=== PATIENT | male | born 1945 | race Caucasian/White ===

== ENCOUNTER 2019-06-09 12:00 | Observation (INO) | payer MEDICARE, OTHER ==
[~2019-06-09] VITALS: Ht 180.3 cm; Wt 129.6 kg
[~2019-06-09 12:00] MED LIST: AMLO5TAB PO; ASPI-1265 PO; ATOR10TA70 PO; FLO0.4C PO; GABA-532 PO; LOSA1TAB36 PO; METO25TA6 PO; MULT-1085 PO; NITR0.4T48 SL; TRAZ150T78 PO
[2019-06-09 12:33] LABS: BASOPHILS # (AUTO) 0.1 X10'3 (0-0.2); BASOPHILS % (AUTO) 0.8 % (0-1); EOSINOPHILS # (AUTO) 0.2 X10'3 (0-0.9); EOSINOPHILS % (AUTO) 3.2 % (0-6); HEMATOCRIT 46.6 % (42.0-52.0); HEMOGLOBIN 15.8 g/dl (14.0-17.9); LYMPHOCYTES # (AUTO) 2.1 X10'3 (1.1-4.8); LYMPHOCYTES % (AUTO) 29.3 % (21-51); MEAN CORPUSCULAR HEMOGLOBIN 30.9 PG (27.0-31.0); MEAN CORPUSCULAR HGB CONC 33.9 g/dL (33.0-36.5); MEAN PLATELET VOLUME 8.8 FL (7.4-10.4); MONOCYTES # (AUTO) 0.7 X10'3 (0-0.9); MONOCYTES % (AUTO) 9.8 % (2-12); NEUTROPHILS % (AUTO) 56.9 % (42-75); PLATELET COUNT 203 X10'3 (140-440); RED BLOOD COUNT 5.12 X10'6 (4.70-6.10); RED CELL DISTRIBUTION WIDTH 13.4 % (11.5-14.5); WHITE BLOOD COUNT 7.1 X10'3 (4.5-11.0)
[2019-06-09 12:46] LABS: PARTIAL THROMBOPLASTIN TIME 28 SECONDS (22-32)
[2019-06-09 12:50] LABS: ALANINE AMINOTRANSFERASE 33 U/L (12-78); ALKALINE PHOSPHATASE 104 IU/L (46-116); ANION GAP 6 (8-16); ASPARTATE AMINO TRANSFERASE 22 U/L (10-37); BILIRUBIN,TOTAL 0.4 MG/DL (0.1-1.0); BLOOD UREA NITROGEN 11 MG/DL (7-18); BUN/CREATININE RATIO 10.1 (5.4-32.0); CALCIUM 8.8 MG/DL (8.5-10.1); CHLORIDE 104 MMOL/L (99-107); CREATININE 1.09 MG/DL (0.60-1.10); GLUCOSE 125 MG/DL (70-104); POTASSIUM 3.8 MMOL/L (3.5-5.1); SODIUM 143 MMOL/L (135-145); TOTAL CARBON DIOXIDE 33.4 MMOL/L (24-32); TROPONIN I < 0.04 NG/ML (0.0-0.05); eGFR 66 ML/MIN
[2019-06-09] MEDS ORDERED: iohexol 350MG/ML 100ml bottle IV ONE (13:05)
[2019-06-09 13:38] LABS: C-REACTIVE PROTEIN 0.06 MG/DL (0.0-0.5)
--- NOTE | 2019-06-09 13:38 | NUR ---
VASCULAR AT BEDSIDE
--- NOTE | 2019-06-09 14:24 | NUR ---
MOUNTING INSPECTOR DONE WITH THE PT .PT RESTING IN BED ,NO DISTRESS NOTED .ASSIGNED NURSE ON BREAK RGT NOW.PT USING URINAL NOW.
[2019-06-09] MEDS ORDERED: aspirin 325mg tablet PO ONE (14:25)
--- NOTE | 2019-06-09 14:30 | NUR ---
pt urinated 510 ml of urine.vitals stable ,pt med as per provider order administered.
[2019-06-09] MEDS ORDERED: magnesium hydroxide 30ml (MOM) UD suspension PO PRN (15:35)
[2019-06-09] MEDS ORDERED: ondansetron/PF 4mg/2ml inj IV PRN (15:35)
[2019-06-09] MEDS ORDERED: HYDROcodone/acetaminophen 5mg/325mg tablet PO PRN (15:35)
[2019-06-09] MEDS ORDERED: acetaminophen 325mg tablet PO PRN (15:35)
[2019-06-09] MEDS ORDERED: mag hydrox/Alum hydrox/simeth 30ml oral suspension PO PRN (15:35)
[2019-06-09] MEDS ORDERED: morphine 2 MG/ML inj. syringe IV PRN ×2 (15:35)
[2019-06-09] MEDS ORDERED: DULO60CA65 PO (16:32)
[2019-06-09] MEDS ORDERED: TRAZ-219 PO (16:32)
[2019-06-09] MEDS ORDERED: GABA-532 PO (16:32)
[2019-06-09] MEDS ORDERED: CYCL10TA10 PO (16:32)
[2019-06-09 16:33] LABS: CHOL/HDL RATIO 3.3 (0.00-4.99); CHOLESTEROL 113 MG/DL (0-200); HDL CHOLESTEROL 34 MG/DL (35-60); LDL CHOLESTEROL 62 MG/DL (50-100); TRIGLYCERIDES 185 MG/DL (20-135)
[2019-06-09 16:35] LABS: HEMOGLOBIN A1C 5.6 % (4.5-6.2)
--- NOTE | 2019-06-09 16:49 | NUR ---
NEURO TELE CONSULT IN PROGRESS
--- NOTE | 2019-06-09 17:32 | NUR ---
ECHO AT BEDSIDE
[2019-06-09 19:21] VITALS: BP 138/82
[2019-06-09] MEDS: cyclobenzaprine 10mg tablet PO SCH (20:43)
[2019-06-09] MEDS: gabapentin 300mg capsule PO SCH (20:43)
--- NOTE | 2019-06-09 20:55 | NUR ---
PT ARRIVED ON FLOOR AT 1920 VIA GURNEY AND ONE ATTENDANT. PT SETTLED IN AND VSS. STROKE ASSESSMENT PERFORMED WITH ZERO DEFICITS. PT IS A&OX4, CALL LIGHT WITHIN REACH, SWALLOW GOOD, SKIN GOOD.
[2019-06-09] MEDS ORDERED: traZODone 150mg tablet PO SCH (21:00)
[2019-06-09 22:00] VITALS: BP 130/79
[2019-06-10 02:00] VITALS: BP 133/88
--- NOTE | 2019-06-10 02:00 | NUR ---
TELE REPORTED THAT PT'S BP WAS ELEVATED INTO THE 130'S. ASSESSMENT, PT WAS UP TO THE BR WITH ASSIST, AND BACK TO BED, NO SOB, NO CP, NO OTHER SYMPTOMS, PT STATES THAT HE DIDN'T NOTICE ANYTHING. CALLED BACK TO TELEMETRY, AND PT HR IS BACK INTO THE 80'S. WILL CONTINUE TO MONITOR.
[2019-06-10 06:00] VITALS: BP 124/76
[2019-06-10 06:01] LABS: BASOPHILS # (AUTO) 0.1 X10'3 (0-0.2); BASOPHILS % (AUTO) 1.2 % (0-1); EOSINOPHILS # (AUTO) 0.3 X10'3 (0-0.9); EOSINOPHILS % (AUTO) 3.2 % (0-6); HEMATOCRIT 45.7 % (42.0-52.0); HEMOGLOBIN 15.6 g/dl (14.0-17.9); LYMPHOCYTES # (AUTO) 2.6 X10'3 (1.1-4.8); MEAN CORPUSCULAR HEMOGLOBIN 30.6 PG (27.0-31.0); MEAN CORPUSCULAR HGB CONC 34.2 g/dL (33.0-36.5); MEAN CORPUSCULAR VOLUME 89.5 FL (78-98); MONOCYTES # (AUTO) 0.8 X10'3 (0-0.9); MONOCYTES % (AUTO) 9.4 % (2-12); NEUTROPHILS # (AUTO) 5.2 X10'3 (1.8-7.7); NEUTROPHILS % (AUTO) 57.2 % (42-75); PLATELET COUNT 202 X10'3 (140-440); RED BLOOD COUNT 5.11 X10'6 (4.70-6.10); RED CELL DISTRIBUTION WIDTH 13.8 % (11.5-14.5)
--- NOTE | 2019-06-10 06:30 | NUR ---
received report from rita champagne
[2019-06-10 06:38] LABS: ALBUMIN 3.6 G/DL (3.4-5.0); ANION GAP 11 (8-16); BLOOD UREA NITROGEN 10 MG/DL (7-18); BUN/CREATININE RATIO 9.4 (5.4-32.0); CALCIUM 8.6 MG/DL (8.5-10.1); CHLORIDE 105 MMOL/L (99-107); CHOL/HDL RATIO 3.5 (0.00-4.99); CHOLESTEROL 106 MG/DL (0-200); CREATININE 1.06 MG/DL (0.60-1.10); GLUCOSE 103 MG/DL (70-104); HDL CHOLESTEROL 30 MG/DL (35-60); LDL CHOLESTEROL 61 MG/DL (50-100); POTASSIUM 3.6 MMOL/L (3.5-5.1); SODIUM 144 MMOL/L (135-145); TOTAL CARBON DIOXIDE 27.8 MMOL/L (24-32); TRIGLYCERIDES 126 MG/DL (20-135); eGFR 69 ML/MIN
--- NOTE | 2019-06-10 06:43 | NUR ---
REPORT GIVEN TO KELLY SOLARES.
[2019-06-10] MEDS: cyclobenzaprine 10mg tablet PO SCH (07:38)
[2019-06-10] MEDS: gabapentin 300mg capsule PO SCH (07:38)
[2019-06-10] MEDS ORDERED: aspirin 81mg tab.chew PO SCH (08:00)
[2019-06-10] MEDS ORDERED: aspirin 81mg tablet.DR PO SCH (08:00)
[2019-06-10] MEDS ORDERED: atorvastatin 10mg tablet PO SCH (08:00)
[2019-06-10] MEDS ORDERED: duloxetine 30mg CAPSULE.DR PO SCH (08:00)
[2019-06-10] MEDS ORDERED: tamsulosin 0.4mg capsule PO SCH (08:00)
[2019-06-10] MEDS ORDERED: clopidogrel 75mg tablet PO SCH (08:00)
[2019-06-10] MEDS ORDERED: CLOP75TA35 PO (08:12)
[2019-06-10 09:50] VITALS: BP 127/77
--- NOTE | 2019-06-10 09:58 | NUR ---
pt d/c with instructions, understanding of instructions, and w/all belongings in wheelchair to private vehicle to go home and f/u w/pcp
== END 2019-06-10 10:00 | disposition home or self-care (01) ==
LOC: ER 12:00 → ED HOLD 16:56 → CMPBEDREQ 18:05 → ORTHO 4S 18:34 → CMPBEDREQ 19:33
PROVIDERS: ADMIT Internal Medicine; ATTEND Internal Medicine
DX: G45.3 Amaurosis fugax (principal); I25.10 Atherosclerotic heart disease of native coronary artery without angina pectoris; I25.2 Old myocardial infarction; I10 Essential (primary) hypertension; E78.5 Hyperlipidemia, unspecified; G62.9 Polyneuropathy, unspecified; E78.00 Pure hypercholesterolemia, unspecified; N40.0 Benign prostatic hyperplasia without lower urinary tract symptoms; G47.00 Insomnia, unspecified; Z86.73 Personal history of transient ischemic attack (TIA), and cerebral infarction without residual deficits; Z87.891 Personal history of nicotine dependence; Z96.653 Presence of artificial knee joint, bilateral; Z96.649 Presence of unspecified artificial hip joint; Z90.49 Acquired absence of other specified parts of digestive tract; Z79.02 Long term (current) use of antithrombotics/antiplatelets; Z79.82 Long term (current) use of aspirin; Z79.899 Other long term (current) drug therapy
CPT/HCPCS: 36415; 70450; 70496; 70498; 71045; 80048; 80053; 80061; 83036; 83880; 84484; 85025; 85610; 85651; 85730; 86140; 87081; 92508; 92616; 93005; 93306; 93880; 97116; 97161; 97530; 99284; G0378; Q9967

== ENCOUNTER 2020-09-07 09:40 | Day surgery (SDC) | payer OTHER, MEDICARE ==
[2020-09-01 12:17] LABS: BASOPHILS # (AUTO) 0.1 X10'3 (0-0.2); EOSINOPHILS % (AUTO) 0.7 % (0-6); LYMPHOCYTES # (AUTO) 1.7 X10'3 (1.1-4.8); LYMPHOCYTES % (AUTO) 26.6 % (21-51); MEAN CORPUSCULAR HEMOGLOBIN 30.2 PG (27.0-31.0); MEAN CORPUSCULAR HGB CONC 33.8 g/dL (33.0-36.5); MEAN CORPUSCULAR VOLUME 89.6 FL (78-98); MEAN PLATELET VOLUME 8.4 FL (7.4-10.4); MONOCYTES # (AUTO) 0.5 X10'3 (0-0.9); MONOCYTES % (AUTO) 8.3 % (2-12); NEUTROPHILS % (AUTO) 63.4 % (42-75); PRE OP HEMATOCRIT 46.4 % (42.0-52.0); PRE OP HEMOGLOBIN 15.7 g/dL (14.0-17.9); PRE OP PLATELET COUNT 219 X10'3 (140-440); RED BLOOD COUNT 5.18 X10'6 (4.70-6.10); RED CELL DISTRIBUTION WIDTH 14.2 % (11.5-14.5)
[2020-09-01 12:23] LABS: PRE OP INR 1.1 INR; PRE OP PROTIME 11.4 SECONDS (9.0-12.0)
[2020-09-01 12:24] LABS: ALBUMIN 4.1 G/DL (3.4-5.0); ALBUMIN/GLOBULIN RATIO 1.2 (1.1-1.5); ALKALINE PHOSPHATASE 75 IU/L (46-116); BLOOD UREA NITROGEN 11 MG/DL (7-18); BUN/CREATININE RATIO 10.8 (5.4-32.0); CALCIUM 8.7 MG/DL (8.5-10.1); CHLORIDE 105 MMOL/L (99-107); CREATININE 1.02 MG/DL (0.60-1.10); PRE OP ALT 39 U/L (30-65); PRE OP ANION GAP 5 (8-16); PRE OP AST 27 U/L (10-37); PRE OP BILIRUB, TOTAL 0.4 MG/DL (0.0-1.0); PRE OP GLUCOSE 106 MG/DL (70-104); PRE OP POTASSIUM 3.8 MMOL/L (3.4-5.1); PRE OP SODIUM 141 MMOL/L (135-145); TOTAL CARBON DIOXIDE 30.9 MMOL/L (24-32); TOTAL PROTEIN 7.5 G/DL (6.4-8.2); eGFR 72 ML/MIN
[~2020-09-07] VITALS: Ht 182.9 cm; Wt 125.2 kg
[2020-09-07] VITALS (23 sets, daily range): BP systolic 90–142; BP diastolic 50–85
[~2020-09-07 09:40] MED LIST changes: -ASPI-1265 PO; +ASPI81TA52 PO; +CLOP75TA15 PO; +CYCL10TA10 PO; +DOCUMENT DATE & TIME OF BETA-BLOCKER PO ONE; +DULO60CA65 PO; +HYDROcodone/acetaminophen 10/325mg tab PO PRN; +HYDROmorphone 1 mg/ml syringe IV PRN; +HYDROmorphone inj. 0.5 MG/0.5 ML DISP.SYRIN IV PRN; -LOSA1TAB36 PO; +LOSA50TA64 PO; +NORMAL SALINE IV ONE; +TRANEXAMIC ACID IV ONE; +TRAZ-256 PO; -TRAZ150T78 PO; +acetaminophen 325mg tablet PO PRN; +bisacodyl 10mg suppository rectal RC PRN; +ceFAZolin inj. 3,000 MG in normal saline 100ml IV soln 100 ML IV ONE; +diphenhydrAMINE 25mg capsule PO PRN; +famotidine 20mg tablet PO ONE; +magnesium hydroxide 30ml (MOM) UD suspension PO PRN; +nitroGLYCERIN 0.4mg SUBLingual tab SL PRN; +ondansetron/PF 4mg/2ml inj IV PRN; +ringers solution, lacted 1,000 ML IV SCH; +vancomycin inj 2,000 MG in normal saline 500ml IV soln 500 ML IV ONE
--- NOTE | 2020-09-07 10:00 | NUR ---
UNABLE TO START IV IN PRE-OP, PIV TO BE STARTED IN OR Addendum: 09/07/20 at 1201 by Savana Weeks RN Amended: Links added.
[2020-09-07] MEDS ORDERED: ROPIVAcaine inj 250 MG, CloNIDine/PF inj 80 MCG, epiNEPHrine inj 0.5 MG in normal salin... IV ONE (10:25)
[2020-09-07] MEDS ORDERED: VANCOMYCIN 1,500MG inj. 1,500 MG in normal saline 500ml IV soln 500 ML IV ONE (10:30)
[2020-09-07] MEDS ORDERED: vancomycin 1,000mg inj ONE (10:33)
[2020-09-07] MEDS ORDERED: fentaNYL/PF 50MCG/1 ML 2ML syringe ONE (11:28)
[2020-09-07] MEDS ORDERED: MIDAZolam 1mg/ml 10ml vial ONE ×2 (11:28→11:52)
[2020-09-07] MEDS ORDERED: metoprolol tartrate 1mg/ml inj IV ONE (12:18)
[2020-09-07] MEDS ORDERED: labetalol 20mg/4ml (5mg/ml) syringe IV PRN (12:25)
[2020-09-07] MEDS ORDERED: fentaNYL/PF 50MCG/1 ML 2ML syringe IV PRN ×2 (12:25)
[2020-09-07] MEDS ORDERED: ondansetron/PF 4mg/2ml inj IV PRN (12:25)
[2020-09-07] MEDS ORDERED: hydrALAZINE 20mg/ml inj. IV PRN (12:25)
[2020-09-07] MEDS ORDERED: morphine 4 MG/ML inj SYRINge IV PRN (12:25)
[2020-09-07] MEDS ORDERED: ringers solution, lacted 1,000 ML IV SCH (12:25)
[2020-09-07] MEDS ORDERED: morphine 2 MG/ML inj. syringe IV PRN (12:25)
--- NOTE | 2020-09-07 12:55 | NUR ---
ADMITTED TO PACU FROM OR ACCOMPANIED BY ANESTHESIA. INTIAL PHYSICAL ASSESSMENT DONE AND RECORDED. REPORT RECEIVED FROM ANESTHESIA.
--- NOTE | 2020-09-07 14:57 | NUR ---
Patient in room [facility] 357B. I have received report from KELLY WADSWORTH FROM [facility] and had the opportunity to ask questions and assume patient care.
[2020-09-07] MEDS ORDERED: nitroGLYCERIN 0.4mg SUBLingual tab SL ONE (15:05)
--- NOTE | 2020-09-07 15:15 | NUR ---
PACU DISCHARGE CRITERIA MET, REPORT GIVEN TO FLOOR. DENIES PAIN OR DISCOMFORT, TRANSFERRED TO ROOM IN STABLE GOOD CONDITION.
[2020-09-07] MEDS ORDERED: cefazolin/dext.iso 2gm/100ml 100 ML IV SCH (16:00)
[2020-09-07] MEDS: potassium cl 20mEq in 1/2 NS 1,000 ML IV SCH (16:55)
[2020-09-07] MEDS: ceFAZolin/D5W- 1GM premix 50 ML IV SCH ×2 (16:56→23:40)
--- NOTE | 2020-09-07 18:30 | NUR ---
Patient in room [facility] 357. I have received report from KELLY FERRARO and had the opportunity to ask questions and assume patient care.
--- NOTE | 2020-09-07 18:41 | NUR ---
Problems reprioritized. Patient report given, questions answered & plan of care reviewed with KELLY ALEGRIA .
[2020-09-07] MEDS ORDERED: sennosides 8.6mg tablet PO SCH (21:00)
[2020-09-07] MEDS ORDERED: traZODone 150mg tablet PO SCH (21:00)
[2020-09-07] MEDS ORDERED: gabapentin 300mg capsule PO SCH (21:00)
[2020-09-07] MEDS: HYDROcodone/acetaminophen 10/325mg tab PO PRN (21:20)
[2020-09-07] MEDS: gabapentin 300mg capsule PO SCH (21:21)
[2020-09-07] MEDS: ascorbic acid 500mg tablet PO SCH (21:21)
[2020-09-07] MEDS: metoprolol tartrate 12.5mg (1/2 tablet) PO SCH (21:27)
[2020-09-07] MEDS ORDERED: VANCOMYCIN 1,500MG inj. 1,500 MG in normal saline 500ml IV soln 300 ML IV SCH (22:00)
[2020-09-08] VITALS: BP 131/61
[2020-09-08 04:00] VITALS: BP 137/67
[2020-09-08] MEDS: potassium cl 20mEq in 1/2 NS 1,000 ML IV SCH (04:59)
[2020-09-08] MEDS: HYDROcodone/acetaminophen 10/325mg tab PO PRN ×2 (05:00→11:00)
[2020-09-08 06:05] LABS: BASOPHILS % (AUTO) 0.5 % (0-1); EOSINOPHILS # (AUTO) 0.1 X10'3 (0-0.9); EOSINOPHILS % (AUTO) 1.2 % (0-6); HEMATOCRIT 41.6 % (42.0-52.0); HEMOGLOBIN 14.1 g/dl (14.0-17.9); LYMPHOCYTES # (AUTO) 1.1 X10'3 (1.1-4.8); LYMPHOCYTES % (AUTO) 12.3 % (21-51); MEAN CORPUSCULAR HEMOGLOBIN 30.3 PG (27.0-31.0); MEAN CORPUSCULAR HGB CONC 33.8 g/dL (33.0-36.5); MEAN CORPUSCULAR VOLUME 89.8 FL (78-98); MEAN PLATELET VOLUME 8.6 FL (7.4-10.4); MONOCYTES # (AUTO) 0.8 X10'3 (0-0.9); MONOCYTES % (AUTO) 9.4 % (2-12); NEUTROPHILS # (AUTO) 6.9 X10'3 (1.8-7.7); NEUTROPHILS % (AUTO) 76.6 % (42-75); PLATELET COUNT 183 X10'3 (140-440); RED BLOOD COUNT 4.64 X10'6 (4.70-6.10); RED CELL DISTRIBUTION WIDTH 13.9 % (11.5-14.5)
[2020-09-08 06:11] LABS: ANION GAP 7 (8-16); CHLORIDE 107 MMOL/L (99-107); POTASSIUM 4.1 MMOL/L (3.5-5.1); SODIUM 143 MMOL/L (135-145); TOTAL CARBON DIOXIDE 28.6 MMOL/L (24-32)
[2020-09-08 08:00] VITALS: BP 126/70
[2020-09-08] MEDS ORDERED: duloxetine 30mg CAPSULE.DR PO SCH (08:00)
[2020-09-08] MEDS ORDERED: multivitamins, therapeutics tablet PO SCH (08:00)
[2020-09-08] MEDS ORDERED: aspirin 81mg tablet.DR PO SCH (08:00)
[2020-09-08] MEDS ORDERED: clopidogrel 75mg tablet PO SCH (08:00)
[2020-09-08] MEDS ORDERED: amLODIPine 5mg tablet PO SCH (08:00)
[2020-09-08] MEDS ORDERED: tamsulosin 0.4mg capsule PO SCH (08:00)
[2020-09-08] MEDS ORDERED: losartan 50mg tablet PO SCH (08:00)
[2020-09-08] MEDS ORDERED: atorvastatin 10mg tablet PO SCH (08:00)
[2020-09-08] MEDS: ascorbic acid 500mg tablet PO SCH (10:54)
[2020-09-08] MEDS: gabapentin 300mg capsule PO SCH (10:55)
[2020-09-08] MEDS: metoprolol tartrate 12.5mg (1/2 tablet) PO SCH (10:58)
[2020-09-08 12:00] VITALS: BP 138/70
--- NOTE | 2020-09-08 15:10 | NUR ---
PATIENT STABLE AND APPROPRIATE FOR DISCHARGE, IV TAKEN OUT, EDUCATION GIVEN, ALL BELONGINGS SENT WITH PATIENT INCLUDING A PERSONAL CPAP, PATIENT TAKEN BY WHEELCHAIR TO LOBBY TO AN AWAITING CAR WHERE FAMILY WILL TAKE PATIENT HOME
[2020-09-08] MEDS ORDERED: celeCOXIB 100mg capsule PO SCH (20:00)
== END 2020-09-08 15:12 | disposition home or self-care (01) ==
LOC: PAS 09:40 → UNDOADMOB 15:25 → SUR 3N 15:25 → PAS 09-08 15:12
PROVIDERS: ATTEND Orthopaedic Surgery
DX: M16.12 Unilateral primary osteoarthritis, left hip (principal); Z20.828 Contact with and (suspected) exposure to other viral communicable diseases; I10 Essential (primary) hypertension; I25.10 Atherosclerotic heart disease of native coronary artery without angina pectoris; I25.2 Old myocardial infarction; G47.30 Sleep apnea, unspecified; G47.00 Insomnia, unspecified; E66.01 Morbid (severe) obesity due to excess calories; Z68.37 Body mass index [BMI] 37.0-37.9, adult; Z86.73 Personal history of transient ischemic attack (TIA), and cerebral infarction without residual deficits; Z79.899 Other long term (current) drug therapy; Z79.01 Long term (current) use of anticoagulants; Z87.891 Personal history of nicotine dependence; Z72.89 Other problems related to lifestyle; Z88.1 Allergy status to other antibiotic agents; Z79.82 Long term (current) use of aspirin
CPT/HCPCS: 27130; 36415; 72170; 80051; 80053; 85025; 85610; 85730; 86885; 86900; 86901; 87081; 87635; 97110; 97112; 97116; 97161; 97530; 97535; C1776; J0690; J1170; J2250; J3010; J3370; J7040; J7120; A7000; G0378; J3480; J3490

== ENCOUNTER 2020-12-03 12:17 | Inpatient (IN) | payer OTHER, MEDICARE ==
[2020-12-03] VITALS (15 sets, daily range): BP systolic 101–162; BP diastolic 73–97
[~2020-12-03] VITALS: Ht 177.8 cm; Wt 94.0 kg
[~2020-12-03 12:17] MED LIST changes: -DOCUMENT DATE & TIME OF BETA-BLOCKER PO ONE; -HYDROcodone/acetaminophen 10/325mg tab PO PRN; -HYDROmorphone 1 mg/ml syringe IV PRN; -HYDROmorphone inj. 0.5 MG/0.5 ML DISP.SYRIN IV PRN; -NORMAL SALINE IV ONE; -TRANEXAMIC ACID IV ONE; -acetaminophen 325mg tablet PO PRN; +adenosine 3mg/ml 2ml vial IV ONE; -bisacodyl 10mg suppository rectal RC PRN; -ceFAZolin inj. 3,000 MG in normal saline 100ml IV soln 100 ML IV ONE; -diphenhydrAMINE 25mg capsule PO PRN; -famotidine 20mg tablet PO ONE; -magnesium hydroxide 30ml (MOM) UD suspension PO PRN; -nitroGLYCERIN 0.4mg SUBLingual tab SL PRN; -ondansetron/PF 4mg/2ml inj IV PRN; -ringers solution, lacted 1,000 ML IV SCH; -vancomycin inj 2,000 MG in normal saline 500ml IV soln 500 ML IV ONE
[2020-12-03] MEDS ORDERED: pantoprazole 40 MG vial IV ONE (12:30)
[2020-12-03] MEDS ORDERED: famotidine/PF 10 mg/ml inj IV ONE (12:30)
[2020-12-03] MEDS ORDERED: normal saline 1000ML IV soln IV ONE (12:30)
[2020-12-03] MEDS ORDERED: pantoprazole 40MG/NS 100ML BAG 100 ML IV ONE (12:34)
[2020-12-03 12:52] LABS: BASOPHILS # (AUTO) 0.1 X10'3 (0-0.2); BASOPHILS % (AUTO) 0.4 % (0-1); EOSINOPHILS % (AUTO) 0 % (0-6); HEMATOCRIT 35.8 % (42.0-52.0); HEMOGLOBIN 11.7 g/dl (14.0-17.9); LYMPHOCYTES # (AUTO) 2.8 X10'3 (1.1-4.8); LYMPHOCYTES % (AUTO) 17.3 % (21-51); MEAN CORPUSCULAR HEMOGLOBIN 29.4 PG (27.0-31.0); MEAN CORPUSCULAR HGB CONC 32.7 g/dL (33.0-36.5); MEAN CORPUSCULAR VOLUME 89.7 FL (78-98); MEAN PLATELET VOLUME 9.6 FL (7.4-10.4); MONOCYTES # (AUTO) 1.1 X10'3 (0-0.9); MONOCYTES % (AUTO) 6.8 % (2-12); NEUTROPHILS # (AUTO) 12.2 X10'3 (1.8-7.7); NEUTROPHILS % (AUTO) 75.5 % (42-75); PLATELET COUNT 283 X10'3 (140-440); RED BLOOD COUNT 3.99 X10'6 (4.70-6.10); WHITE BLOOD COUNT 16.2 X10'3 (4.5-11.0)
[2020-12-03 12:55] LABS: PARTIAL THROMBOPLASTIN TIME 26 SECONDS (22-32)
[2020-12-03 12:56] LABS: ALANINE AMINOTRANSFERASE 19 U/L (12-78); ALBUMIN 3.4 G/DL (3.4-5.0); ALBUMIN/GLOBULIN RATIO 1.2 (1.1-1.5); ALKALINE PHOSPHATASE 93 IU/L (46-116); ANION GAP 12 (8-16); ASPARTATE AMINO TRANSFERASE 19 U/L (10-37); BILIRUBIN,TOTAL 0.5 MG/DL (0.1-1.0); BLOOD UREA NITROGEN 36 MG/DL (7-18); BUN/CREATININE RATIO 34.3 (5.4-32.0); CALCIUM 8.6 MG/DL (8.5-10.1); CHLORIDE 108 MMOL/L (99-107); CREATININE 1.05 MG/DL (0.60-1.10); GLUCOSE 135 MG/DL (70-104); LIPASE < 50 U/L (73-393); SODIUM 146 MMOL/L (135-145); TOTAL CARBON DIOXIDE 25.9 MMOL/L (24-32); TOTAL PROTEIN 6.2 G/DL (6.4-8.2); eGFR 69 ML/MIN
--- NOTE | 2020-12-03 13:46 | NUR ---
Dr. Cohen at bedside.
[2020-12-03] MEDS ORDERED: metroNIDAZOLE-Flagyl 500mg/NS 100 ML IV STA (13:52)
[2020-12-03] MEDS ORDERED: ciprofloxacin lact 400MG/200ML 200 ML IV ONE (13:55)
--- NOTE | 2020-12-03 13:59 | NUR ---
Attempted to placed NGT. Pt became combative, swinging at staff and threating staff stating "I'm going to blow your head off!" and "get the fuck away from me!" Dr. Singletary aware and states to cancel NGT at this time.
[2020-12-03] MEDS ORDERED: UNABLE TO OBTAIN (14:05)
[2020-12-03] MEDS ORDERED: LORazepam 2 mg/ml vial IV ONE (14:10)
--- NOTE | 2020-12-03 14:24 | NUR ---
Pt is very agitated, angry facial expressions and tapping on gurney rails. Administered ativan as ordered. Pt will not allow RN to administer IV abx as ordered. Will allow pt to calm himself before approaching again. Will continue to monitor.
[2020-12-03] MEDS ORDERED: bisacodyl 10mg suppository rectal RC PRN (14:25)
[2020-12-03] MEDS ORDERED: potassium Cl 20 mEq SR tablet PO PRN ×2 (14:25)
[2020-12-03] MEDS ORDERED: mag hydrox/Alum hydrox/simeth 30ml oral suspension PO PRN (14:25)
[2020-12-03] MEDS ORDERED: acetaminophen 325mg tablet PO PRN (14:25)
[2020-12-03] MEDS ORDERED: ondansetron/PF 4mg/2ml inj IV PRN (14:25)
[2020-12-03] MEDS ORDERED: potassium Cl 40MEQ/1/2NS 520ml 520 ML IV PRN ×2 (14:25)
[2020-12-03] MEDS ORDERED: magnesium 2GM in 50ml NS 50 ML IV PRN (14:25)
[2020-12-03] MEDS ORDERED: magnesium 4gm in 100ml NS 100 ML IV PRN (14:25)
[2020-12-03] MEDS ORDERED: adenosine 3mg/ml 2ml vial IV ONE ×2 (14:30)
--- NOTE | 2020-12-03 15:12 | NUR ---
To GI lab on monitor with RN for procedure as ordered.
[2020-12-03] MEDS ORDERED: fentaNYL/PF 50MCG/1 ML 2ML syringe ONE (15:21)
[2020-12-03] MEDS ORDERED: LIDOcaine Viscous 15ml cup ONE (15:21)
[2020-12-03] MEDS ORDERED: MIDAZolam 1 MG/ML 5ML VIAL ONE (15:21)
[2020-12-03] MEDS ORDERED: epiNEPHrine 0.1mg/ml 10ml syringe ONE (15:46)
--- NOTE | 2020-12-03 17:20 | NUR ---
Patient brought back from GI lab by Martha MENDOZA. Patient placed back onto Protonix gtt and started Flagyl. Tele monitor placed onto patient. Rectal tube in place. 2 RN skin check and MRSA swab completed. Post op vital signs started at 1715.
[2020-12-03] MEDS: pantoprazole 40MG/NS 100ML BAG 100 ML IV SCH ×2 (17:38→22:58)
[2020-12-03] MEDS: metroNIDAZOLE-Flagyl 500mg/NS 100 ML IV SCH (17:39)
[2020-12-03] MEDS: normal saline 1000ml 1,000 ML IV SCH (17:39)
[2020-12-03] MEDS ORDERED: cyclobenzaprine 10mg tablet PO PRN (18:05)
--- NOTE | 2020-12-03 18:24 | NUR ---
Problems reprioritized. Patient report given, questions answered & plan of care reviewed with KELLY medina.
[2020-12-03] MEDS: metoprolol tartrate 12.5mg (1/2 tablet) PO SCH (19:22)
[2020-12-03] MEDS: ciprofloxacin lact 400MG/200ML 200 ML IV SCH (19:22)
[2020-12-03] MEDS: K and/or MAG REPLACEMENT MC SCH (20:00)
[2020-12-03] MEDS: gabapentin 300mg capsule PO SCH (21:59)
[2020-12-03] MEDS: traZODone 150mg tablet PO SCH (22:00)
[2020-12-04] VITALS (8 sets, daily range): BP systolic 86–131; BP diastolic 49–77
[2020-12-04] MEDS: normal saline 1000ml 1,000 ML IV SCH ×3 (00:26→20:01)
[2020-12-04] MEDS: metroNIDAZOLE-Flagyl 500mg/NS 100 ML IV SCH ×2 (00:26→09:22)
[2020-12-04] MEDS: pantoprazole 40MG/NS 100ML BAG 100 ML IV SCH (04:08)
[2020-12-04 07:08] LABS: HEMATOCRIT 29.3 % (42.0-52.0); MEAN CORPUSCULAR HEMOGLOBIN 30.1 PG (27.0-31.0); MEAN CORPUSCULAR HGB CONC 34.1 g/dL (33.0-36.5); MEAN CORPUSCULAR VOLUME 88.2 FL (78-98); MEAN PLATELET VOLUME 9.3 FL (7.4-10.4); PLATELET COUNT 189 X10'3 (140-440); RED BLOOD COUNT 3.32 X10'6 (4.70-6.10); RED CELL DISTRIBUTION WIDTH 15.2 % (11.5-14.5)
[2020-12-04 07:45] LABS: ALANINE AMINOTRANSFERASE 20 U/L (12-78); ALBUMIN 2.9 G/DL (3.4-5.0); ALBUMIN/GLOBULIN RATIO 1.1 (1.1-1.5); ALKALINE PHOSPHATASE 74 IU/L (46-116); ANION GAP 9 (8-16); ASPARTATE AMINO TRANSFERASE 21 U/L (10-37); BILIRUBIN,TOTAL 0.4 MG/DL (0.1-1.0); BLOOD UREA NITROGEN 20 MG/DL (7-18); BUN/CREATININE RATIO 26.3 (5.4-32.0); CALCIUM 8.1 MG/DL (8.5-10.1); CHLORIDE 113 MMOL/L (99-107); CREATININE 0.76 MG/DL (0.60-1.10); GLUCOSE 97 MG/DL (70-104); MAGNESIUM 1.8 MG/DL (1.5-2.4); POTASSIUM 3.6 MMOL/L (3.5-5.1); SODIUM 146 MMOL/L (135-145); TOTAL CARBON DIOXIDE 23.9 MMOL/L (24-32); TOTAL PROTEIN 5.5 G/DL (6.4-8.2); eGFR > 90 ML/MIN
--- NOTE | 2020-12-04 07:51 | NUR ---
notified. PAGER ID: [phone] MESSAGE: Re: Briana Vance. Pt. still NPO after EGD. Can we start him on a diet? thanks.
[2020-12-04] MEDS: K and/or MAG REPLACEMENT MC SCH ×2 (08:00→20:00)
--- NOTE | 2020-12-04 09:00 | NUR ---
Dr. Tan at bedside. Received verbal order for Heart healthy diet, to discontinue IV Protonix, and to start 40mg BID PO Protonix and Nystatin powder.
[2020-12-04] MEDS: atorvastatin 20mg tablet PO SCH (09:22)
[2020-12-04] MEDS: tamsulosin 0.4mg capsule PO SCH (09:23)
[2020-12-04] MEDS: metoprolol tartrate 12.5mg (1/2 tablet) PO SCH ×2 (09:23→20:02)
[2020-12-04] MEDS: losartan 50mg tablet PO SCH (09:24)
[2020-12-04] MEDS: gabapentin 300mg capsule PO SCH ×3 (09:24→20:01)
[2020-12-04] MEDS: multivitamins, therapeutics tablet PO SCH (09:24)
[2020-12-04] MEDS: duloxetine 30mg CAPSULE.DR PO SCH (09:24)
[2020-12-04] MEDS: pantoprazole 40mg Tablet.DR PO SCH ×2 (09:25→20:02)
--- NOTE | 2020-12-04 10:00 | NUR ---
Rectal tube removed. 45ml of water removed from balloon. Patient tolerated procedure well.
[2020-12-04] MEDS: ciprofloxacin lact 400MG/200ML 200 ML IV SCH (12:22)
--- NOTE | 2020-12-04 15:28 | NUR ---
Discussed with Komal Tamayo, aviation program manager to come talk to patient for a renal social worker consultation.
--- NOTE | 2020-12-04 15:44 | NUR ---
notified. PAGER ID: [phone] MESSAGE: RE; Briana Vance. [id number]. Positive orthostatics. SBP while sitting 119. Standing; 92. FYI. Also notified family service caseworker about patient for a consult. Thanks. Joann. [phone].
[2020-12-04] MEDS ORDERED: normal saline 500ml IV soln 500 ML IV ONE (16:00)
--- NOTE | 2020-12-04 18:27 | NUR ---
Problems reprioritized. Patient report given, questions answered & plan of care reviewed with KELLY Schmid.
--- NOTE | 2020-12-04 18:35 | NUR ---
Patient in room PCU 3018. I have received report from Joann MENDOZA and had the opportunity to ask questions and assume patient care.
[2020-12-04] MEDS: lactobacillus rhamnosus 10,000 MMU CELLS/CAPSULE PO SCH (20:01)
[2020-12-04] MEDS: traZODone 150mg tablet PO SCH (20:01)
[2020-12-04] MEDS: nystatin 15 GM powder TP SCH (22:17)
[2020-12-05 02:00] VITALS: BP 118/72
[2020-12-05 06:33] LABS: HEMATOCRIT 30.5 % (42.0-52.0); HEMOGLOBIN 10.2 g/dl (14.0-17.9); MEAN CORPUSCULAR HEMOGLOBIN 29.9 PG (27.0-31.0); MEAN CORPUSCULAR HGB CONC 33.4 g/dL (33.0-36.5); MEAN CORPUSCULAR VOLUME 89.5 FL (78-98); MEAN PLATELET VOLUME 9.6 FL (7.4-10.4); PLATELET COUNT 183 X10'3 (140-440); RED BLOOD COUNT 3.41 X10'6 (4.70-6.10); WHITE BLOOD COUNT 9.5 X10'3 (4.5-11.0)
--- NOTE | 2020-12-05 06:33 | NUR ---
Problems reprioritized. Patient report given, questions answered & plan of care reviewed with Irene MENDOZA.
--- NOTE | 2020-12-05 06:44 | NUR ---
Patient in room PCU 3018. I have received report from Binu MENDOZA and had the opportunity to ask questions and assume patient care.
[2020-12-05 07:00] VITALS: BP 122/67
[2020-12-05 07:17] LABS: ALANINE AMINOTRANSFERASE 21 U/L (12-78); ALBUMIN/GLOBULIN RATIO 1.1 (1.1-1.5); ALKALINE PHOSPHATASE 79 IU/L (46-116); ANION GAP 10 (8-16); ASPARTATE AMINO TRANSFERASE 25 U/L (10-37); BILIRUBIN,TOTAL 0.3 MG/DL (0.1-1.0); BLOOD UREA NITROGEN 10 MG/DL (7-18); BUN/CREATININE RATIO 13.3 (5.4-32.0); CALCIUM 8.5 MG/DL (8.5-10.1); CHLORIDE 112 MMOL/L (99-107); CREATININE 0.75 MG/DL (0.60-1.10); GLUCOSE 98 MG/DL (70-104); MAGNESIUM 1.9 MG/DL (1.5-2.4); POTASSIUM 3.6 MMOL/L (3.5-5.1); SODIUM 147 MMOL/L (135-145); TOTAL CARBON DIOXIDE 25.4 MMOL/L (24-32); TOTAL PROTEIN 5.7 G/DL (6.4-8.2); eGFR > 90 ML/MIN
[2020-12-05 08:00] VITALS: BP_SYST 104; BP_SYST 110; BP_SYST 86; BP_DIAS 50; BP_DIAS 55; BP_DIAS 68
[2020-12-05] MEDS: K and/or MAG REPLACEMENT MC SCH (08:00)
--- NOTE | 2020-12-05 09:00 | NUR ---
New order from Rusu for 500 cc bolus and recheck orthostatics after.
[2020-12-05] MEDS: normal saline 1000ml 1,000 ML IV SCH (09:04)
[2020-12-05] MEDS: atorvastatin 20mg tablet PO SCH (09:05)
[2020-12-05] MEDS: metoprolol tartrate 12.5mg (1/2 tablet) PO SCH (09:05)
[2020-12-05] MEDS: multivitamins, therapeutics tablet PO SCH (09:05)
[2020-12-05] MEDS: pantoprazole 40mg Tablet.DR PO SCH (09:05)
[2020-12-05] MEDS: gabapentin 300mg capsule PO SCH ×2 (09:05→12:28)
[2020-12-05] MEDS: tamsulosin 0.4mg capsule PO SCH (09:05)
[2020-12-05] MEDS: nystatin 15 GM powder TP SCH ×2 (09:06→13:58)
[2020-12-05] MEDS: duloxetine 30mg CAPSULE.DR PO SCH (09:06)
[2020-12-05] MEDS: lactobacillus rhamnosus 10,000 MMU CELLS/CAPSULE PO SCH (09:06)
[2020-12-05] MEDS: losartan 50mg tablet PO SCH (09:06)
[2020-12-05 11:12] VITALS: BP_SYST 105; BP_SYST 117; BP_SYST 84; BP_DIAS 52; BP_DIAS 74; BP_DIAS 75
--- NOTE | 2020-12-05 11:14 | NUR ---
Orthostatic vitals are positive after 500cc bolus, will repeat bolus and orthostatic vitals after and let Rusu know results per doctor orders.
[2020-12-05 12:07] VITALS: BP 108/60
[2020-12-05 12:37] VITALS: BP_SYST 118; BP_SYST 122; BP_SYST 98; BP_DIAS 65; BP_DIAS 67; BP_DIAS 78
[2020-12-05] MEDS ORDERED: PANT40TA54 PO (13:46)
== END 2020-12-05 15:55 | disposition home or self-care (01) | DRG 378 ==
LOC: ER 12:18 → ED HOLD 14:21 → PCU 3S 16:27
PROVIDERS: ADMIT Family Medicine; ATTEND Family Medicine
PROC: 30233N1 Transfusion of Nonautologous Red Blood Cells into Peripheral Vein, Percutaneous Approach (ICD-10-PCS; principal; 2020-12-03)
PROC: 0DJ08ZZ Inspection of Upper Intestinal Tract, Via Natural or Artificial Opening Endoscopic (ICD-10-PCS; 2020-12-03)
DX: K26.4 Chronic or unspecified duodenal ulcer with hemorrhage (principal); D62 Acute posthemorrhagic anemia; I47.1 Supraventricular tachycardia; E87.0 Hyperosmolality and hypernatremia; E78.00 Pure hypercholesterolemia, unspecified; E78.5 Hyperlipidemia, unspecified; F03.90 Unspecified dementia, unspecified severity, without behavioral disturbance, psychotic disturbance, mood disturbance, and anxiety; I10 Essential (primary) hypertension; I95.1 Orthostatic hypotension; J44.9 Chronic obstructive pulmonary disease, unspecified; K29.70 Gastritis, unspecified, without bleeding; N40.0 Benign prostatic hyperplasia without lower urinary tract symptoms; I44.4 Left anterior fascicular block; D72.829 Elevated white blood cell count, unspecified; G47.00 Insomnia, unspecified; K29.80 Duodenitis without bleeding; K52.9 Noninfective gastroenteritis and colitis, unspecified; R79.89 Other specified abnormal findings of blood chemistry; K44.9 Diaphragmatic hernia without obstruction or gangrene; K22.2 Esophageal obstruction; Z96.659 Presence of unspecified artificial knee joint; K57.30 Diverticulosis of large intestine without perforation or abscess without bleeding; Z79.02 Long term (current) use of antithrombotics/antiplatelets; Z79.82 Long term (current) use of aspirin; Z79.899 Other long term (current) drug therapy; I25.2 Old myocardial infarction; Z86.73 Personal history of transient ischemic attack (TIA), and cerebral infarction without residual deficits; Z87.891 Personal history of nicotine dependence; Z88.1 Allergy status to other antibiotic agents
CPT/HCPCS: 36415; 36430; 43235; 71045; 74176; 80053; 82140; 83605; 83690; 83735; 84145; 85025; 85027; 85610; 85730; 86885; 86900; 86901; 86920; 87040; 87081; 93005; 97161; 97530; 99152; 99291; A4620; C9113; G0378; J0153; J0171; J0744; J2060; J2250; J3010; J3490; J7030; J7040; P9016

== ENCOUNTER 2021-01-17 09:44 | Emergency (ER) | payer OTHER, MEDICARE ==
[~2021-01-17] VITALS: Ht 183.5 cm; Wt 110.9 kg
[~2021-01-17 09:44] MED LIST changes: -AMLO5TAB PO; -ASPI81TA52 PO; +LOP25T PO; -METO25TA6 PO; +PANT40TA54 PO; -adenosine 3mg/ml 2ml vial IV ONE
[2021-01-17 11:07] LABS: BASOPHILS # (AUTO) 0.1 X10'3 (0-0.2); BASOPHILS % (AUTO) 0.9 % (0-1); EOSINOPHILS # (AUTO) 0.1 X10'3 (0-0.9); EOSINOPHILS % (AUTO) 1.6 % (0-6); HEMATOCRIT 37.2 % (42.0-52.0); HEMOGLOBIN 12.1 g/dl (14.0-17.9); LYMPHOCYTES # (AUTO) 1.1 X10'3 (1.1-4.8); LYMPHOCYTES % (AUTO) 16.7 % (21-51); MEAN CORPUSCULAR HGB CONC 32.5 g/dL (33.0-36.5); MEAN CORPUSCULAR VOLUME 86.3 FL (78-98); MEAN PLATELET VOLUME 8.7 FL (7.4-10.4); MONOCYTES # (AUTO) 0.5 X10'3 (0-0.9); NEUTROPHILS % (AUTO) 73.8 % (42-75); PLATELET COUNT 268 X10'3 (140-440); RED BLOOD COUNT 4.31 X10'6 (4.70-6.10); WHITE BLOOD COUNT 6.8 X10'3 (4.5-11.0)
[2021-01-17 11:22] LABS: ALANINE AMINOTRANSFERASE 16 U/L (12-78); ALBUMIN 3.3 G/DL (3.4-5.0); ALKALINE PHOSPHATASE 100 IU/L (46-116); ANION GAP 8 (8-16); ASPARTATE AMINO TRANSFERASE 23 U/L (10-37); BILIRUBIN,TOTAL 0.3 MG/DL (0.1-1.0); BLOOD UREA NITROGEN 14 MG/DL (7-18); BUN/CREATININE RATIO 14.7 (5.4-32.0); CALCIUM 8.5 MG/DL (8.5-10.1); CHLORIDE 106 MMOL/L (99-107); CREATININE 0.95 MG/DL (0.60-1.10); GLUCOSE 102 MG/DL (70-104); POTASSIUM 4.4 MMOL/L (3.5-5.1); SODIUM 142 MMOL/L (135-145); TOTAL CARBON DIOXIDE 28.5 MMOL/L (24-32); TOTAL PROTEIN 6.6 G/DL (6.4-8.2); eGFR 77 ML/MIN
[2021-01-17] MEDS ORDERED: normal saline 1000ML IV soln IVB ONE (11:50)
[2021-01-17 13:40] VITALS: BP 122/79
== END 2021-01-17 13:15 | disposition home or self-care (01) ==
LOC: ER 09:45
DX: R55 Syncope and collapse (principal); E78.00 Pure hypercholesterolemia, unspecified; I10 Essential (primary) hypertension; Z88.1 Allergy status to other antibiotic agents; Z79.899 Other long term (current) drug therapy
CPT/HCPCS: 36415; 70450; 71045; 80053; 83880; 84484; 85025; 93005; 99285; J7030

== ENCOUNTER 2021-08-10 09:03 | Outpatient (CLI) | payer OTHER ==
[~2021-08-10 09:03] MED LIST changes: +CYCL-524 PO; -CYCL10TA10 PO; +barium sulfate 450ml oral suspension ONE
== END 2021-08-10 23:59 | disposition home or self-care (01) ==
LOC: RAD 09:03
PROVIDERS: ATTEND Nurse Practitioner Family
DX: R13.12 Dysphagia, oropharyngeal phase (principal)
CPT/HCPCS: 74230

== ENCOUNTER 2023-08-01 20:14 | Observation (INO) | payer OTHER, MEDICARE ==
[~2023-08-01] VITALS: Ht 182.9 cm; Wt 100.0 kg
[~2023-08-01 20:14] MED LIST changes: -barium sulfate 450ml oral suspension ONE
[2023-08-01 20:47] LABS: BASOPHILS # (AUTO) 0.1 X10'3 (0-0.2); EOSINOPHILS % (AUTO) 0.4 % (0-6); HEMATOCRIT 46.6 % (42.0-52.0); HEMOGLOBIN 15.4 g/dl (14.0-17.9); LYMPHOCYTES % (AUTO) 12.6 % (21-51); MEAN CORPUSCULAR HEMOGLOBIN 28.8 PG (27.0-31.0); MEAN CORPUSCULAR VOLUME 87.5 FL (78-98); MEAN PLATELET VOLUME 8.8 FL (7.4-10.4); MONOCYTES # (AUTO) 0.4 X10'3 (0-0.9); NEUTROPHILS # (AUTO) 6.5 X10'3 (1.8-7.7); PLATELET COUNT 208 X10'3 (140-440); RED BLOOD COUNT 5.33 X10'6 (4.70-6.10); RED CELL DISTRIBUTION WIDTH 16.2 % (11.5-14.5)
[2023-08-01 20:54] LABS: ALANINE AMINOTRANSFERASE 10 U/L (12-78); ALBUMIN 3.2 G/DL (3.4-5.0); ALBUMIN/GLOBULIN RATIO 1.1 (1.1-1.5); ALKALINE PHOSPHATASE 71 IU/L (46-116); ANION GAP 19 (8-16); ASPARTATE AMINO TRANSFERASE 18 U/L (10-37); BILIRUBIN,TOTAL 0.5 MG/DL (0.1-1.0); BLOOD UREA NITROGEN 16 MG/DL (7-18); BUN/CREATININE RATIO 12.9 (10.0-20.0); CALCIUM 8.3 MG/DL (8.5-10.1); CHLORIDE 101 MMOL/L (99-107); CREATININE 1.24 MG/DL (0.60-1.10); GLUCOSE 85 MG/DL (70-104); SODIUM 138 MMOL/L (135-145); TOTAL CARBON DIOXIDE 18.1 MMOL/L (24-32); TOTAL PROTEIN 6.2 G/DL (6.4-8.2); eCRCL 56 ML/MIN; eGFR 57 ML/MIN
[2023-08-01 21:02] LABS: PRO BRAIN NATRIURETIC PEPTIDE 373 PG/ML (0-450)
[2023-08-01] MEDS ORDERED: normal saline 500ml IV soln 500 ML IV ONE (22:05)
[2023-08-01 23:44] LABS: ALBUMIN 3.4 G/DL (3.4-5.0); ANION GAP 15 (8-16); BLOOD UREA NITROGEN 17 MG/DL (7-18); BUN/CREATININE RATIO 13.8 (10.0-20.0); CALCIUM 8.3 MG/DL (8.5-10.1); CHLORIDE 102 MMOL/L (99-107); CREATININE 1.23 MG/DL (0.60-1.10); GLUCOSE 78 MG/DL (70-104); POTASSIUM 3.9 MMOL/L (3.5-5.1); SODIUM 138 MMOL/L (135-145); TOTAL CARBON DIOXIDE 21.5 MMOL/L (24-32); eCRCL 56 ML/MIN; eGFR 57 ML/MIN
[2023-08-02] VITALS (8 sets, daily range): BP systolic 118–137; BP diastolic 58–91; PULSE 71–134; RESP 15–18; TEMP 96.7–98.1; O2SAT 92–97
[2023-08-02] MEDS ORDERED: acetaminophen 325mg tablet PO PRN ×2 (01:00)
[2023-08-02] MEDS ORDERED: mag hydrox/Alum hydrox/simeth 30ml oral suspension PO PRN (01:00)
[2023-08-02] MEDS ORDERED: HYDROcodone/acetaminophen 5mg/325mg tablet PO PRN (01:00)
[2023-08-02] MEDS ORDERED: ondansetron/PF 4mg/2ml inj IV PRN (01:00)
[2023-08-02] MEDS ORDERED: morphine 2 MG/ML inj. syringe IV PRN ×2 (01:00)
[2023-08-02] MEDS: normal saline 1000ml 1,000 ML IV SCH ×3 (01:31→15:38)
[2023-08-02 01:34] LABS: PRO BRAIN NATRIURETIC PEPTIDE 325 PG/ML (0-450)
[2023-08-02 05:48] LABS: BILIRUBIN,URINE MODERATE (Neg); CLARITY,URINE SLIGHTLY CLOUDY (Clear); GLUCOSE, URINE NEGATIVE (Neg); LEUKOCYTE ESTERASE ,URINE NEGATIVE (Neg); NITRITES, URINE NEGATIVE (Neg); OCCULT BLOOD,URINE MODERATE (Neg); PROTEIN,URINE 30 mg/dl (Neg); UROBILINOGEN,URINE 0.2 E.U/dL (0.2-1.0)
[2023-08-02 05:55] LABS: KETONES,URINE >80 mg/dl (Neg); UA COLLECTION TYPE VOIDED
[2023-08-02 05:57] LABS: COLOR,URINE DARK YELLOW (Yellow); WBC,URINE 0-4 /HPF (0-4)
[2023-08-02 05:58] LABS: BACTERIA,URINE NONE SEEN /HPF (Neg); FINE GRANULAR CAST 0-3 /LPF (NEGATIVE); HYALINE CASTS 0-3 /LPF (NEGATIVE); MUCUS STRANDS NONE SEEN /LPF (Neg); RBC,URINE 50-100 /HPF (0-2); SQUAMOUS EPITHELIAL CELL,UR FEW /LPF (FEW)
[2023-08-02] MEDS ORDERED: insulin Lispro (HumaLOG) vial - multi-dose SQ SCH (07:45)
[2023-08-02] MEDS ORDERED: DEXTROSE 15 GM of carb/4 tabs (each vial/BOTTLE has 4 tablets) PO PRN ×2 (07:45)
[2023-08-02] MEDS ORDERED: glucagon, human recombinant 1mg kit SUBCUT PRN (07:45)
[2023-08-02] MEDS ORDERED: MESSAGE TO PHARMACY PO ONE (07:45)
[2023-08-02] MEDS ORDERED: dextrose 50%-water 50ml dispensing syringe IV PRN ×2 (07:45)
[2023-08-02] MEDS: docusate sod 100mg capsule PO SCH ×2 (08:52→21:50)
[2023-08-02] MEDS: magnesium hydroxide 30ml (MOM) UD suspension PO PRN (15:39)
[2023-08-02] MEDS ORDERED: traZODone 50mg tablet PO SCH (21:00)
[2023-08-02] MEDS ORDERED: insulin glargine (Lantus) pen - multi-dose SQ SCH (21:00)
[2023-08-02] MEDS ORDERED: atorvastatin 20mg tablet PO SCH (21:00)
[2023-08-02] MEDS ORDERED: tamsulosin 0.4mg capsule PO SCH (21:00)
[2023-08-02] MEDS: pantoprazole 40mg Tablet.DR PO SCH (21:51)
[2023-08-02] MEDS: gabapentin 100mg capsule PO SCH (21:51)
[2023-08-02] MEDS: metoprolol tartrate 12.5mg (1/2 tablet) PO SCH (22:18)
[2023-08-03 02:00] VITALS: BP 113/58; PULSE 65; RESP 14; TEMP 98; O2SAT 93
[2023-08-03] MEDS: normal saline 1000ml 1,000 ML IV SCH (03:37)
[2023-08-03 06:00] VITALS: BP 134/79; PULSE 61; RESP 12; TEMP 97.2; O2SAT 99
[2023-08-03 07:31] LABS: BASOPHILS % (AUTO) 0.5 % (0-1); EOSINOPHILS # (AUTO) 0.2 X10'3 (0-0.9); EOSINOPHILS % (AUTO) 2.4 % (0-6); HEMOGLOBIN 15.3 g/dl (14.0-17.9); LYMPHOCYTES # (AUTO) 1.5 X10'3 (1.1-4.8); LYMPHOCYTES % (AUTO) 19.7 % (21-51); MEAN CORPUSCULAR HEMOGLOBIN 28.6 PG (27.0-31.0); MEAN CORPUSCULAR HGB CONC 33.2 g/dL (33.0-36.5); MEAN CORPUSCULAR VOLUME 86.1 FL (78-98); MONOCYTES # (AUTO) 0.8 X10'3 (0-0.9); MONOCYTES % (AUTO) 9.8 % (2-12); NEUTROPHILS # (AUTO) 5.2 X10'3 (1.8-7.7); NEUTROPHILS % (AUTO) 67.6 % (42-75); PLATELET COUNT 206 X10'3 (140-440); RED BLOOD COUNT 5.34 X10'6 (4.70-6.10); RED CELL DISTRIBUTION WIDTH 16.2 % (11.5-14.5); WHITE BLOOD COUNT 7.6 X10'3 (4.5-11.0)
[2023-08-03 07:46] LABS: ALBUMIN 3.3 G/DL (3.4-5.0); ANION GAP 8 (8-16); BLOOD UREA NITROGEN 10 MG/DL (7-18); BUN/CREATININE RATIO 9.3 (10.0-20.0); CALCIUM 8.5 MG/DL (8.5-10.1); CHLORIDE 105 MMOL/L (99-107); CREATININE 1.07 MG/DL (0.60-1.10); GLUCOSE 89 MG/DL (70-104); POTASSIUM 3.7 MMOL/L (3.5-5.1); SODIUM 140 MMOL/L (135-145); eCRCL 64 ML/MIN; eGFR 67 ML/MIN
[2023-08-03] MEDS ORDERED: duloxetine 30mg CAPSULE.DR PO SCH (08:00)
[2023-08-03] MEDS: metoprolol tartrate 12.5mg (1/2 tablet) PO SCH (08:00)
[2023-08-03] MEDS ORDERED: clopidogrel 75mg tablet PO SCH (08:00)
[2023-08-03] MEDS ORDERED: multivitamins, therapeutics tablet PO SCH (08:00)
[2023-08-03] MEDS ORDERED: losartan 50mg tablet PO SCH (08:00)
[2023-08-03 09:45] VITALS: RESP 12; O2SAT 96
[2023-08-03] MEDS: gabapentin 100mg capsule PO SCH (09:55)
[2023-08-03] MEDS: pantoprazole 40mg Tablet.DR PO SCH (09:56)
[2023-08-03] MEDS: docusate sod 100mg capsule PO SCH (09:56)
[2023-08-03] MEDS: magnesium hydroxide 30ml (MOM) UD suspension PO PRN (09:57)
[2023-08-03 10:00] VITALS: BP 125/94; PULSE 77; RESP 12; TEMP 97.7; O2SAT 96
[2023-08-03 14:00] VITALS: BP 107/68; PULSE 101; RESP 20; TEMP 97.9; O2SAT 94
[2023-08-03] MEDS ORDERED: nystatin 15 GM powder TP SCH (20:00)
== END 2023-08-03 17:12 ==
LOC: ER 20:15 → ED HOLD 20:20 → INTOOBSV 08-02 01:04 → UNDOADMOB 08-02 01:04 → PCU 3S 08-02 08:20 → ED HOLD 08-02 08:20 → PCU 3S 08-02 08:20 → UNDODISOB 08-03 17:12
PROVIDERS: ADMIT Internal Medicine; ATTEND Internal Medicine
DX: U07.1 COVID-19 (principal); I25.10 Atherosclerotic heart disease of native coronary artery without angina pectoris; E78.5 Hyperlipidemia, unspecified; N40.0 Benign prostatic hyperplasia without lower urinary tract symptoms; G47.00 Insomnia, unspecified; E11.9 Type 2 diabetes mellitus without complications; E78.00 Pure hypercholesterolemia, unspecified; I11.0 Hypertensive heart disease with heart failure; I50.9 Heart failure, unspecified; M19.90 Unspecified osteoarthritis, unspecified site; I25.2 Old myocardial infarction; Z87.891 Personal history of nicotine dependence; Z59.82 Transportation insecurity; Z79.899 Other long term (current) drug therapy
CPT/HCPCS: 36415; 71045; 80048; 80053; 81001; 82948; 83036; 83880; 84484; 85025; 87081; 87811; 96360; 96361; 97161; 97530; 99285; A6258; G0378; J1815; J7030; J7040; A4349; A4615